=== PATIENT | male | born 1970 | race Caucasian/White ===

== ENCOUNTER 2019-08-29 17:30 | Emergency (ER) | payer OTHER ==
[~2019-08-29] VITALS: Ht 180.3 cm; Wt 86.2 kg
[2019-08-29] MEDS ORDERED: DICLOFENAC SODI75 MG PO (19:10)
== END 2019-08-29 21:11 | disposition home or self-care (01) ==
LOC: ER 17:30
DX: S80.02XA Contusion of left knee, initial encounter (principal); W18.39XA Other fall on same level, initial encounter; Y93.89 Activity, other specified; Y92.488 Other paved roadways as the place of occurrence of the external cause; Y99.8 Other external cause status